=== PATIENT | male | born 1990 | race Native Hawaiian/Other Pacific Islander ===

== ENCOUNTER 2019-02-23 16:48 | Emergency (ER) | payer SELFPAY ==
[2019-02-23 18:56] VITALS: BP 132/84
--- NOTE | 2019-02-23 21:20 | Cat Scan Report ---
FACIAL CT 02/23/2019 HISTORY: Trauma FINDINGS: CT images of the facial bones were obtained. Images are evaluated in the axial, coronal, an d sagittal planes. There is no evidence of acute osseous injury. Paranasal sinuses are clear. There is no evidence of osseous orbital injury or fracture. Intraorbital structures are unremarkable. IMPRESSION: No evidence of acute osseous injury. All CT scans at this location are performed using dose reduction to ALARA by means of automated expos ure control. Signer Name: Jame Nicholas MD Signed: 02/23/2019 9:15 PM Workstation Name: [id number]
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
== END 2019-02-23 22:30 | disposition home or self-care (01) ==
LOC: ED 16:48
DX: S00.83XA Contusion of other part of head, initial encounter (principal); F41.9 Anxiety disorder, unspecified; F32.9 Major depressive disorder, single episode, unspecified; Z79.899 Other long term (current) drug therapy; X58.XXXA Exposure to other specified factors, initial encounter; Y93.89 Activity, other specified; Y92.89 Other specified places as the place of occurrence of the external cause; Y99.8 Other external cause status
CPT/HCPCS: 70486